=== PATIENT | male | born 2000 | race Caucasian/White ===

== ENCOUNTER 2020-09-20 08:55 | Emergency (ER) | payer OTHER, SELFPAY ==
--- NOTE | ~2020-09-20 | XR_ITS ---
EXAMINATION: XR hand RT min 3V EXAM DATE: 09/20/2020 09:51 INDICATION: Dog bite to the palm of the right hand. TECHNIQUE: Right hand frontal, lateral and oblique projections obtained and reviewed. Comparison is m wu to prior examination from 09/07/2017. FINDINGS: Right metacarpal bones are unremarkable. There are no acute fractures or dislocations iden tified. There is no subcutaneous gas. There is soft tissue swelling over the hand posteriorly, overl lidia bandage. There are no radiopaque foreign bodies. IMPRESSION: 1. XR hand RT min 3V exam without acute osseous findings. 2. Soft tissue swelling. Reviewed, dictated and finalized at location B. OR ART DIRECTOR
[2020-09-20 08:59] VITALS: BP 132/80; PULSE 120; RESP 16; TEMP 36.9; O2SAT 97
--- NOTE | 2020-09-20 09:56 | ED.GENADULT ---
HPI - General Adult General Chief complaint: Animal Bite Stated complaint: Dog Bite Time Seen by Provider: 09/20/20 09:05 Source: patient and family Mode of arrival: ambulatory Limitations: no limitations History of Present Illness HPI narrative: Patient is a 20-year-old male who presents to emergency department for evaluation of right hand injury secondary to dog bite patient was attempting to take the bone away from his dog was bit on the hand patient presents with puncture wounds and swelling to the dorsal surface with 1 puncture wound to the palmar surface. Patient notes that the injury occurred at midnight. Patient denies other injuries or complaints. Patient is unsure as to tetanus status. Patient notes that he washed the wound out immediately after with water and applied bacitracin Related Data Allergies Allergy/AdvReac Type Severity Reaction Status Date / Time No Known Allergies Allergy Verified 09/20/20 09:23 Review of Systems Review of Systems: All systems reviewed & are unremarkable except as noted in HPI and below PMFSH Social History Social History (Updated 09/20/20 @ 09:58 by Harshal Pina PA-C) Smoking status: Never smoker Exam Narrative: Exam Narrative: GENERAL: Well-appearing, well-nourished, and in no acute distress. HEAD: Normocephalic, atraumatic. EYES: PERRLA and EOMI. ENT: Nares clear, no rhinorrhea or epistaxis. Mucous membranes moist. Oropharynx without tonsillar hypertrophy exudate or other lesions. Bilateral TMs pearly humphrey nonbulging NECK: Supple. No adenopathy or masses. No carotid bruits or JVD CHEST: Clear to auscultation. No respiratory distress. No wheezes rales or rhonchi HEART: Regular rate and rhythm. No murmur heard. Normal peripheral pulses. ABDOMEN: Soft, nontender, nondistended, normal active bowel sounds. EXTREMITIES: Normal range of motion. No edema. SKIN: Warm, dry, no rash. NEURO: No focal deficits. Alert and oriented x3. Neurovascularly intact. Capillary refill less than 2 seconds PSYCH: Normal mood and affect. Course Course Emergency Course: Patient is a 20-year-old male who presented with dog bite wounds to the right hand patient's wound was scrubbed in the ER with soap with antibiotic ointment placed was given IV antibiotic in the emergency department patient will follow with hand surgery is aware of recommendations and phone call with hand surgeon Consultations Consultation #1: Spoke with Dr. Morgan hand surgeon who will follow patient in clinic Date: 09/20/20 Time: 10:39 Vital Signs Vital signs: Vital Signs Temperature 98.4 F 09/20/20 08:59 Pulse Rate 120 H 09/20/20 08:59 Respiratory Rate 16 09/20/20 08:59 Blood Pressure 132/80 09/20/20 08:59 Pulse Oximetry 97 09/20/20 08:59 Temperature 98.4 F 09/20/20 08:59 Pulse Rate 120 H 09/20/20 08:59 Respiratory Rate 16 09/20/20 08:59 Blood Pressure 132/80 09/20/20 08:59 Pulse Oximetry 97 09/20/20 08:59 Medical Decision Making MDM Narrative Medical decision making narrative: Patients injury or pain is consistent with musculoskeletal etiology. No signs of neurological or vascular compromise on exam. Compartments and tisues are soft without signs of compartment syndrome. Pain is felt appropriate for further evaluation on an outpatient basis. Vital Signs Vital Signs: Vital Signs Temperature 98.4 F 09/20/20 08:59 Pulse Rate 120 H 09/20/20 08:59 Respiratory Rate 16 09/20/20 08:59 Blood Pressure 132/80 09/20/20 08:59 Pulse Oximetry 97 09/20/20 08:59 Temperature 98.4 F 09/20/20 08:59 Pulse Rate 120 H 09/20/20 08:59 Respiratory Rate 16 09/20/20 08:59 Blood Pressure 132/80 09/20/20 08:59 Pulse Oximetry 97 09/20/20 08:59 Imaging Data Radiologist's impression: ITS Impressions Hand X-Ray 09/20/20 09:54 IMPRESSION: 1. XR hand RT min 3V exam without acute osseous findings. 2. Soft tissue swelling. Discharge Plan Discha
[2020-09-20] MEDS: TETANUS,DIPHTHERIA,AC PERTUSSIS ADULT (0.5 ML) BOOSTRIX IM (10:06)
[2020-09-20] MEDS: SODIUM CHLORIDE 0.9% IV 1,000 ML 999 ML IV CONT (10:22)
[2020-09-20] MEDS: KETOROLAC 30 MG/ML VIAL (*BKC) IV PUSH (10:23)
[2020-09-20] MEDS: AMPICILLIN SULB 3 GM/NS 100 ML 3 GM/100 ML VIAL IVPB (10:23)
[2020-09-20 11:00] VITALS: BP 139/63; PULSE 98; RESP 16; O2SAT 100
== END 2020-09-20 11:00 | disposition home or self-care (01) ==
LOC: ANHED 10:42
PROVIDERS: Emergency Provider Emergency Medicine
DX: S61.451A Open bite of right hand, initial encounter (principal); Z23 Encounter for immunization; W54.0XXA Bitten by dog, initial encounter
CPT/HCPCS: 73130; 90471; 90715; 96365; 96375; 99284; J0295; J1885; J7030

== ENCOUNTER 2022-01-28 14:35 | Outpatient (CLI) | payer OTHER, SELFPAY ==
--- NOTE | ~2022-01-28 | US_ITS ---
US breast LT limited INDICATION: Palpable left retroareolar mass TECHNIQUE: Dedicated left breast ultrasound COMPARISON: No prior studies for comparison. FINDINGS: The left breast is composed of normal heterogeneous echotexture without focal solid or cyst ic mass. There is normal heterogeneous subareolar tissue, consistent with gynecomastia. IMPRESSION: 1: Benign left gynecomastia. No evidence for malignancy. BI-RADS CATEGORY 2 - BENIGN FINDINGS Reviewed, dictated and finalized at location A.
== END 2022-01-28 14:36 | disposition home or self-care (01) ==
PROVIDERS: Visit Provider Nurse Practitioner
DX: N63.0 Unspecified lump in unspecified breast (principal); N62 Hypertrophy of breast
CPT/HCPCS: 76642